=== PATIENT | female | born 2000 | race Two or more races ===

== ENCOUNTER 2022-12-04 01:17 | Emergency (ER) | payer OTHER ==
[~2022-12-04] VITALS: Ht 165.1 cm; Wt 54.4 kg
[2022-12-04 05:05] LABS: HEMATOCRIT 38.3 % (36.0-45.00); HEMOGLOBIN 12.5 g/dL (12.0-15.00); MEAN CELL VOLUME 85.3 fL (80.00-100.00); MEAN CORPUSCULAR HEMOGLOBIN 27.9 pg (27.00-32.0); MEAN CORPUSCULAR HGB CONC 32.8 g/dl (32.0-36.0); PLATELET COUNT 296 K/uL (150-450); RED BLOOD COUNT 4.48 M/uL (4.00-6.00); RED CELL DISTRIBUTION WIDTH 13.3 % (11.5-14.5)
[2022-12-04 05:16] LABS: URINE APPEARANCE Turbid; URINE BILIRRUBIN Negative (NEGATIVE); URINE BLOOD Negative; URINE COLOR Yellow; URINE GLUCOSE Negative (NEGATIVE); URINE LEUKOCYTE Small; URINE NITRATE Negative; URINE PROTEIN Negative (NEGATIVE)
[2022-12-04 05:17] LABS: URINE BACTERIA 969.9 uL (0.0-1933); URINE EPITHELIAL CELLS 32.1 uL (0.0-38.8); URINE RBC 7.1 uL (0.0-20.8); URINE WBC 99.3 uL (0.0-23.2)
[2022-12-04 05:26] LABS: ANION GAP 10 (10.0-20.0); BLOOD UREA NITROGEN 15 mg/dL (7-18); BUN CREA RATIO 19 (7.0-25.0); CALCIUM 9.1 mg/dL (8.5-10.1); CARBON DIOXIDE 29 mEq/L (21-32); CHLORIDE 105 mmol/L (98-107); CREATININE SERUM 0.78 mg/dL (0.55-1.02); GFR 94.16; GLUCOSE FASTING 90 mg/dL (65-100); OSMOLALITY SERUM 280 MOSM/KG (275-295); POTASSIUM 4.05 mEq/L (3.5-5.1); SODIUM 140 mmol/L (136-145)
[2022-12-04 05:32] LABS: HCG QUANTITATIVE < 1 mUI/mL (1-3)
[2022-12-04] MEDS ORDERED: PEPCID40 MG PO (06:05)
[2022-12-04] MEDS ORDERED: ONDANSETRON ODT4 MG PO (06:05)
== END 2022-12-04 06:27 | disposition home or self-care (01) ==
LOC: ER 01:17
PROVIDERS: General Practice
DX: R53.1 Weakness (principal)